=== PATIENT | male | born 1955 | race Caucasian/White ===

== ENCOUNTER 2019-01-23 20:23 | Emergency (ER) | payer OTHER ==
[~2019-01-23] VITALS: Ht 172.7 cm; Wt 70.8 kg
[2019-01-23] MEDS ORDERED: METOPROLOL SUCC25 MG (20:40)
[2019-01-23] MEDS ORDERED: HYDROCHLOROTH12.5 M1 (20:40)
[2019-01-23] MEDS ORDERED: LOSARTAN POTASS25 MG (20:41)
[2019-01-23] MEDS ORDERED: PLAVIX75 MG (20:41)
[2019-01-23] MEDS ORDERED: FENOFIBRATE160 MG (20:41)
== END 2019-01-23 23:42 | disposition home or self-care (01) ==
LOC: ER 20:23
DX: N30.80 Other cystitis without hematuria (principal)

== ENCOUNTER 2019-03-09 09:58 | Emergency (ER) | payer OTHER ==
[~2019-03-09] VITALS: Ht 172.7 cm; Wt 70.8 kg
[~2019-03-09 09:58] MED LIST: FENOFIBRATE160 MG; HYDROCHLOROTH12.5 M1; LOSARTAN POTASS25 MG; METOPROLOL SUCC25 MG; PLAVIX75 MG
== END 2019-03-09 12:50 | disposition home or self-care (01) ==
LOC: ER 09:58
DX: D29.1 Benign neoplasm of prostate (principal)

== ENCOUNTER 2019-03-10 10:46 | Outpatient (CLI) | payer OTHER | END 2019-03-10 10:56 | disposition home or self-care (01) | LOC: RX STUDY 10:46 | DX: N35.816 Other urethral stricture, male, overlapping sites (principal) ==

== ENCOUNTER 2021-07-25 08:13 | Emergency (ER) | payer OTHER ==
[~2021-07-25] VITALS: Ht 172.7 cm; Wt 72.1 kg
[2021-07-25] MEDS ORDERED: CLONAZEPAM1 MG PO (08:26)
[2021-07-25] MEDS ORDERED: LEVSIN0.125 MG PO (08:27)
[2021-07-25] MEDS ORDERED: PRISTIQ ER50 MG PO (08:27)
[2021-07-25] MEDS ORDERED: HYDRODIURIL12.5 MG PO (08:27)
[2021-07-25] MEDS ORDERED: SIMVASTATIN40 MG PO (08:27)
[2021-07-25] MEDS ORDERED: METOCLOPRAMIDE10 MG PO (16:13)
[2021-07-25] MEDS ORDERED: MOTION SICKNESS25 M2 PO (16:13)
== END 2021-07-25 16:38 | disposition home or self-care (01) ==
LOC: ER 08:13
DX: R42 Dizziness and giddiness (principal); Z03.818 Encounter for observation for suspected exposure to other biological agents ruled out